=== PATIENT | female | born 1965 | race African-American/Black ===

== ENCOUNTER 2022-09-25 12:11 | Emergency (ER) | payer BC ==
[~2022-09-25] VITALS: Ht 157.5 cm; Wt 130.0 kg
[2022-09-25 12:14] VITALS: TEMP 98.1; O2SAT 100
[2022-09-25 12:44] LABS: BASOPHILS % 0.5 % (0.0-2.0); EOSINOPHILS % 0.9 % (0.0-5.0); HEMATOCRIT. 38.5 % (36.0-48.0); HEMOGLOBIN. 13.1 g/dL (12.0-16.0); LYMPHOCYTES % 23.2 % (20.0-50.0); MEAN CORPUSCULAR HEMOGLOBIN 31.7 pg (28.0-32.0); MEAN CORPUSCULAR VOLUME 93.1 fL (81.0-99.0); MEAN PLATELET VOLUME 8.4 fl (7.4-10.4); MONOCYTES % 11.4 % (2.0-8.0); PLATELET 184 x1000/uL (130-400); RED BLOOD CELL COUNT 4.14 mill/uL (4.2-5.4); RED CELL DISTRIBUTION WIDTH 14.7 % (11.6-14.6)
[2022-09-25 12:49] LABS: CHLORIDE 109 mEq/L (98-107)
[2022-09-25 12:52] LABS: PARTIAL THROMBOPLASTIN TIME 30.5 sec (23.4-31.0); PROTHROMBIN TIME 10.5 sec (9.6-11.0)
[2022-09-25] MEDS ORDERED: ACETAMINOPHEN WITH CODEINE 300/30MG TABLET PO ONE (14:00)
[2022-09-25 14:51] VITALS: BP 127/77; PULSE 80; RESP 22
== END 2022-09-25 14:52 | disposition home or self-care (01) ==
LOC: ER 12:11
DX: R07.89 Other chest pain (principal); I10 Essential (primary) hypertension; Z98.890 Other specified postprocedural states
CPT/HCPCS: 80053; 83880; 85025; 85610; 85730; 84484; 36415; 71045; 93005; 99285; Z7610

== ENCOUNTER 2023-10-13 19:06 | Emergency (ER) | payer BC, MEDICARE ==
[~2023-10-13] VITALS: Ht 170.2 cm; Wt 123.0 kg
[2023-10-13 19:16] VITALS: TEMP 98.6; O2SAT 98
[2023-10-13 20:31] VITALS: BP 130/77; PULSE 82; RESP 18
[2023-10-13 20:39] LABS: BASOPHILS % 0.7 % (0.0-2.0); EOSINOPHILS % 2.6 % (0.0-5.0); HEMATOCRIT. 36.5 % (36.0-48.0); HEMOGLOBIN. 11.9 g/dL (12.0-16.0); LYMPHOCYTES % 25.4 % (20.0-50.0); MEAN CORPUSCULAR HEMOGLOBIN 30.5 pg (28.0-32.0); MEAN CORPUSCULAR HGB CONC 32.7 g/dL (31.0-37.0); MEAN CORPUSCULAR VOLUME 93.2 fL (81.0-99.0); MEAN PLATELET VOLUME 7.8 fl (7.4-10.4); MONOCYTES % 10.1 % (2.0-8.0); NEUTROPHILS % 61.2 % (40.0-76.0); PLATELET 221 x1000/uL (130-400); RED BLOOD CELL COUNT 3.91 mill/uL (4.2-5.4); RED CELL DISTRIBUTION WIDTH 14.6 % (11.6-14.6); WHITE BLOOD COUNT 5.3 x1000/uL (4.5-11.0)
[2023-10-13 20:47] LABS: CARBON DIOXIDE 29 mEq/L (21-32); CHLORIDE 105 mEq/L (98-107); POTASSIUM 3.5 mEq/L (3.5-5.1); SODIUM 139 mEq/L (136-145)
[2023-10-13 20:48] LABS: CALCIUM 9.3 mg/dL (8.7-10.4)
[2023-10-13 20:53] LABS: CREATININE 1.4 mg/dL (0.6-1.0); GLUCOSE 105 mg/dL (70-105); TROPONIN I HIGH SENSITIVITY < 4 ng/L (3.0-34); UREA NITROGEN BLOOD 10 mg/dL (9-23)
[2023-10-13 20:54] LABS: ALANINE AMINOTRANSFERASE 15 IU/L (10-49); HCG SCREEN NEGATIVE
[2023-10-13 20:55] LABS: ALBUMIN 4.4 g/dL (3.2-4.8); ASPARTATE AMINOTRANSFERASE 17 IU/L (<34); BILIRUBIN DIRECT 0.2 mg/dL (<=3.0); BILIRUBIN TOTAL 0.5 mg/dL (0.1-1.0); PROTEIN TOTAL 7.3 g/dL (6.0-8.3)
== END 2023-10-13 20:37 | disposition left against medical advice (07) ==
LOC: ER 19:06
DX: I10 Essential (primary) hypertension (principal); E11.9 Type 2 diabetes mellitus without complications; E78.00 Pure hypercholesterolemia, unspecified; Z98.890 Other specified postprocedural states
CPT/HCPCS: 36415; 80048; 80076; 83880; 84484; 84703; 85025; 93005; 99284